=== PATIENT | female | born 1990 ===

== ENCOUNTER 2018-08-28 07:33 | Outpatient (CLI) | payer OTHER | END 2018-08-28 07:39 | disposition home or self-care (01) | LOC: SONOGRAMA 07:33 | DX: E04.2 Nontoxic multinodular goiter (principal) ==

== ENCOUNTER 2018-12-18 07:06 | Outpatient (CLI) | payer OTHER | END 2018-12-18 07:18 | disposition home or self-care (01) | LOC: SONOGRAMA 07:06 | DX: E04.2 Nontoxic multinodular goiter (principal) ==